=== PATIENT | female | born 1965 ===

== ENCOUNTER → 2018-06-04 13:26 | Outpatient (REF) | payer OTHER, SELFPAY ==
[2018-06-04 14:13] LABS: Erythrocyte Sedimentation Rate 3 MM/HR (0-20)
== END ==
LOC: LAB 13:26
PROVIDERS: Visit Provider Family Medicine
DX: Z00.00 Encounter for general adult medical examination without abnormal findings (principal); M79.642 Pain in left hand
CPT/HCPCS: 85651